=== PATIENT | male | born 1995 | race Asian ===

== ENCOUNTER 2022-10-19 14:58 | Emergency (ER) | payer MEDICAID ==
[~2022-10-19] VITALS: Ht 167.6 cm; Wt 50.0 kg
[2022-10-19] MEDS ORDERED: aspirin 81mg tab.chew PO ONE (15:15)
[2022-10-19 15:30] LABS: BASOPHILS # (AUTO) 0.1 X10'3 (0-0.2); BASOPHILS % (AUTO) 1.1 % (0-1); EOSINOPHILS # (AUTO) 0.5 X10'3 (0-0.9); EOSINOPHILS % (AUTO) 6.1 % (0-6); HEMATOCRIT 30.1 % (42.0-52.0); HEMOGLOBIN 9.9 g/dl (14.0-17.9); LYMPHOCYTES % (AUTO) 13.1 % (21-51); MEAN CORPUSCULAR HEMOGLOBIN 29.6 PG (27.0-31.0); MEAN CORPUSCULAR HGB CONC 32.9 g/dL (33.0-36.5); MEAN CORPUSCULAR VOLUME 89.9 FL (78-98); MEAN PLATELET VOLUME 6.2 FL (7.4-10.4); MONOCYTES # (AUTO) 0.6 X10'3 (0-0.9); MONOCYTES % (AUTO) 7.9 % (2-12); NEUTROPHILS # (AUTO) 5.5 X10'3 (1.8-7.7); NEUTROPHILS % (AUTO) 71.8 % (42-75); PLATELET COUNT 251 X10'3 (140-440); RED BLOOD COUNT 3.35 X10'6 (4.70-6.10); RED CELL DISTRIBUTION WIDTH 15.2 % (11.5-14.5); WHITE BLOOD COUNT 7.7 X10'3 (4.5-11.0)
--- NOTE | 2022-10-19 15:32 | NUR ---
Order to administer 324 mg ASA. RN clarified with EDUAR Estrada that pt already received this with EMS. Per provider, RN to hold. RN held.
[2022-10-19 16:04] LABS: ALANINE AMINOTRANSFERASE 12 U/L (12-78); ALBUMIN 3.2 G/DL (3.4-5.0); ALBUMIN/GLOBULIN RATIO 0.8 (1.1-1.5); ALKALINE PHOSPHATASE 52 IU/L (46-116); ANION GAP 15 (8-16); ASPARTATE AMINO TRANSFERASE 12 U/L (10-37); BILIRUBIN,TOTAL 0.4 MG/DL (0.1-1.0); BLOOD UREA NITROGEN 99 MG/DL (7-18); BUN/CREATININE RATIO 6.8 (10.0-20.0); CALCIUM 9.2 MG/DL (8.5-10.1); CHLORIDE 102 MMOL/L (99-107); CREATININE 14.54 MG/DL (0.60-1.10); GLUCOSE 98 MG/DL (70-104); MAGNESIUM 2.5 MG/DL (1.5-2.4); POTASSIUM 5.5 MMOL/L (3.5-5.1); SODIUM 142 MMOL/L (135-145); TOTAL CARBON DIOXIDE 24.8 MMOL/L (24-32); TOTAL PROTEIN 7.2 G/DL (6.4-8.2); eGFR 4 ML/MIN
[2022-10-19] MEDS ORDERED: cloNIDine 0.1 mg tablet PO ONE (16:25)
--- NOTE | 2022-10-19 18:00 | NUR ---
Upon arrival to ED, pt reports resolution of CP. At 1600, BP 198/123. Provider at bedside. PA clarifying home BP medications with pt. Catapres administered for elevated BP. SBP temporarily decreases to 170s. However, upon reassessment, BP is elevated at 195/123 and pt reporting return of CP. RN updated ARIAN Estrada. PA aware, CT ordered.
[2022-10-19] MEDS ORDERED: iohexol 350MG/ML 100ml bottle IV ONE (18:56)
[2022-10-19] MEDS: niCARDipine-NS 40mg/200ml IVPB 200 ML IV SCH (19:24)
[2022-10-19] MEDS ORDERED: fentaNYL/PF 50MCG/1 ML 2ML syringe IV ONE ×2 (19:25→22:35)
[2022-10-20] MEDS: niCARDipine-NS 40mg/200ml IVPB 200 ML IV SCH (00:23)
[2022-10-20 00:30] VITALS: BP 10/62
== END 2022-10-20 00:49 | disposition home or self-care (01) ==
LOC: ER 14:58
DX: I12.0 Hypertensive chronic kidney disease with stage 5 chronic kidney disease or end stage renal disease (principal); N18.6 End stage renal disease; I71.00 Dissection of unspecified site of aorta
CPT/HCPCS: 36415; 71045; 71250; 71275; 74174; 80053; 83735; 83880; 85025; 93005; 96365; 96366; 96375; 96376; 99291; 99292; J3010; J3490; Q9967; A4615

== ENCOUNTER 2023-07-20 11:36 | Inpatient (IN) | payer MEDICAID ==
[~2023-07-20] VITALS: Ht 167.6 cm; Wt 47.3 kg
[2023-07-20] VITALS (11 sets, daily range): BP systolic 116–152; BP diastolic 71–99; PULSE 91–103; RESP 18–25; TEMP 98–98.7; O2SAT 94–99
[2023-07-20 12:37] LABS: ABG BASE EXCESS -9.5 mmol/L (-2.0-2.0); ABG HCO3 15.1 mmol/L (22.0-26.0); ABG OXYGEN SATURATION 95.9 % (94-97); ABG PCO2 (T) 28.1 mmHg (35.0-48.0); ABG PH (T) 7.348 (7.340-7.440); ABG PO2 (T) 86.3 mmHg (75.0-100.0); ALLEN'S TEST POSITIVE; FCOHb 0.5 % (0.0-3.9); FHHb 4.1 % (0.0-5.0); FLOW 5 L/min; FMetHb 0.6 % (0.0-1.5); FO2Hb 94.8 % (94-97); MODE NASAL CANNULA; PATIENT TEMPERATURE 36.9; TOTAL HEMOGLOBIN 8.6 G/dl (14.0-17.9)
[2023-07-20 13:00] LABS: ALBUMIN 2.4 G/DL (3.4-5.0); ANION GAP 14 (8-16); BLOOD UREA NITROGEN 109 MG/DL (7-18); BUN/CREATININE RATIO 9.9 (10.0-20.0); CALCIUM 9.6 MG/DL (8.5-10.1); CHLORIDE 95 MMOL/L (99-107); CREATININE 10.96 MG/DL (0.60-1.10); GLUCOSE 83 MG/DL (70-104); SODIUM 129 MMOL/L (135-145); TOTAL CARBON DIOXIDE 20.5 MMOL/L (24-32); eCRCL 7 ML/MIN; eGFR 6 ML/MIN
[2023-07-20 13:10] LABS: POTASSIUM 6.8 MMOL/L (3.5-5.1)
[2023-07-20] MEDS ORDERED: EPOETIN ALFA-EPBX 20,000 UNIT/ML 1 ML MDV IV ONE (13:10)
[2023-07-20] MEDS ORDERED: heparin 1,000unit/ml 10ml vial 10 ML IV ONE (13:10)
[2023-07-20] MEDS ORDERED: heparin 1,000 units/ml 10ml inj IV ONE (13:10)
[2023-07-20] MEDS ORDERED: sodium bicarbonate (8.4%) 1 mEq/ml syringe IV ONE ×2 (13:15→13:25)
[2023-07-20] MEDS ORDERED: heparin 1,000 units/ml 10ml inj HE ONE ×2 (13:15)
[2023-07-20] MEDS ORDERED: CALCIUM GLUC 1gm/50ml NACL,iso 50 ML IV ONE (13:25)
[2023-07-20] MEDS ORDERED: potassium Cl 20 mEq SR tablet PO PRN ×2 (13:40)
[2023-07-20] MEDS ORDERED: mag hydrox/Alum hydrox/simeth 30ml oral suspension PO PRN (13:40)
[2023-07-20] MEDS ORDERED: ondansetron/PF 4mg/2ml inj IV PRN (13:40)
[2023-07-20] MEDS ORDERED: acetaminophen 325mg tablet PO PRN (13:40)
[2023-07-20] MEDS ORDERED: magnesium hydroxide 30ml (MOM) UD suspension PO PRN (13:40)
[2023-07-20] MEDS ORDERED: potassium Cl 40MEQ/1/2NS 520ml 520 ML IV PRN (13:40)
[2023-07-20] MEDS ORDERED: magnesium Cl slow-release 64mg tablet PO PRN (13:40)
[2023-07-20] MEDS ORDERED: morphine 2 MG/ML inj. syringe IV PRN (13:40)
[2023-07-20] MEDS ORDERED: magnesium 2GM in 50ml NS 50 ML IV PRN (13:40)
[2023-07-20] MEDS ORDERED: magnesium 4gm in 100ml NS 100 ML IV PRN (13:40)
[2023-07-20] MEDS ORDERED: sodium bicarbonate (8.4%) 1 mEq/ml syringe ONE (13:55)
[2023-07-20 14:40] LABS: BASOPHILS # (AUTO) 0.1 X10'3 (0-0.2); BASOPHILS % (AUTO) 1.3 % (0-1); EOSINOPHILS # (AUTO) 0.2 X10'3 (0-0.9); EOSINOPHILS % (AUTO) 1.8 % (0-6); HEMATOCRIT 25.7 % (42.0-52.0); HEMOGLOBIN 8.1 g/dl (14.0-17.9); LYMPHOCYTES # (AUTO) 0.5 X10'3 (1.1-4.8); LYMPHOCYTES % (AUTO) 5.2 % (21-51); MEAN CORPUSCULAR HEMOGLOBIN 27.2 PG (27.0-31.0); MEAN CORPUSCULAR HGB CONC 31.4 g/dL (33.0-36.5); MEAN CORPUSCULAR VOLUME 86.7 FL (78-98); MEAN PLATELET VOLUME 6.7 FL (7.4-10.4); MONOCYTES # (AUTO) 0.5 X10'3 (0-0.9); MONOCYTES % (AUTO) 4.6 % (2-12); NEUTROPHILS # (AUTO) 8.9 X10'3 (1.8-7.7); NEUTROPHILS % (AUTO) 87.1 % (42-75); PLATELET COUNT 359 X10'3 (140-440); RED BLOOD COUNT 2.96 X10'6 (4.70-6.10); RED CELL DISTRIBUTION WIDTH 19.9 % (11.5-14.5); WHITE BLOOD COUNT 10.2 X10'3 (4.5-11.0)
[2023-07-20 15:08] LABS: ANISOCYTOSIS 2+; PLATELET ESTIMATE NORMAL
[2023-07-20 15:09] LABS: BURR CELLS FEW; MICROCYTOSIS 1+; SCHISTOCYTES FEW; TEAR DROP CELLS FEW
[2023-07-20] MEDS: heparin, porcine 5000 units/ml vial SQ SCH (16:00)
[2023-07-20] MEDS: docusate sod 100mg capsule PO SCH (20:00)
[2023-07-20] MEDS: K and/or MAG REPLACEMENT MC SCH (20:00)
[2023-07-21] VITALS (8 sets, daily range): BP systolic 96–155; BP diastolic 52–93; PULSE 88–104; RESP 13–22; TEMP 97.7–98.9; O2SAT 93–98
[2023-07-21 07:10] LABS: BASOPHILS # (AUTO) 0.1 X10'3 (0-0.2); BASOPHILS % (AUTO) 0.8 % (0-1); EOSINOPHILS # (AUTO) 0.2 X10'3 (0-0.9); EOSINOPHILS % (AUTO) 2.5 % (0-6); HEMATOCRIT 23.1 % (42.0-52.0); HEMOGLOBIN 7.5 g/dl (14.0-17.9); LYMPHOCYTES # (AUTO) 0.6 X10'3 (1.1-4.8); LYMPHOCYTES % (AUTO) 8.4 % (21-51); MEAN CORPUSCULAR HEMOGLOBIN 27.7 PG (27.0-31.0); MEAN CORPUSCULAR HGB CONC 32.6 g/dL (33.0-36.5); MEAN CORPUSCULAR VOLUME 84.8 FL (78-98); MEAN PLATELET VOLUME 6.9 FL (7.4-10.4); MONOCYTES # (AUTO) 0.9 X10'3 (0-0.9); MONOCYTES % (AUTO) 11.6 % (2-12); NEUTROPHILS # (AUTO) 5.7 X10'3 (1.8-7.7); NEUTROPHILS % (AUTO) 76.7 % (42-75); PLATELET COUNT 316 X10'3 (140-440); RED BLOOD COUNT 2.72 X10'6 (4.70-6.10); WHITE BLOOD COUNT 7.4 X10'3 (4.5-11.0)
[2023-07-21 07:21] LABS: ALANINE AMINOTRANSFERASE 9 U/L (12-78); ALBUMIN 2.2 G/DL (3.4-5.0); ALBUMIN/GLOBULIN RATIO 0.5 (1.1-1.5); ALKALINE PHOSPHATASE 58 IU/L (46-116); ANION GAP 10 (8-16); ASPARTATE AMINO TRANSFERASE 17 U/L (10-37); BILIRUBIN,TOTAL 0.9 MG/DL (0.1-1.0); BLOOD UREA NITROGEN 60 MG/DL (7-18); BUN/CREATININE RATIO 9.6 (10.0-20.0); CALCIUM 8.7 MG/DL (8.5-10.1); CHLORIDE 95 MMOL/L (99-107); CREATININE 6.24 MG/DL (0.60-1.10); GLUCOSE 106 MG/DL (70-104); MAGNESIUM 1.8 MG/DL (1.5-2.4); PHOSPHORUS 6.8 MG/DL (2.3-4.5); POTASSIUM 4.8 MMOL/L (3.5-5.1); SODIUM 133 MMOL/L (135-145); TOTAL CARBON DIOXIDE 28.2 MMOL/L (24-32); TOTAL PROTEIN 6.8 G/DL (6.4-8.2); eCRCL 12 ML/MIN; eGFR 11 ML/MIN
[2023-07-21] MEDS: K and/or MAG REPLACEMENT MC SCH ×2 (08:00→19:00)
[2023-07-21] MEDS: docusate sod 100mg capsule PO SCH ×2 (08:04→19:01)
[2023-07-21] MEDS: heparin, porcine 5000 units/ml vial SQ SCH ×4 (08:05→23:00)
[2023-07-21] MEDS ORDERED: oxyCODONE/APAP 5-325mg tablet PO PRN (16:15)
[2023-07-22] VITALS (20 sets, daily range): BP systolic 149–192; BP diastolic 91–130; PULSE 87–122; RESP 18–30; TEMP 97.3–98.9; O2SAT 92–100
[2023-07-22] MEDS ORDERED: normal saline 1000ml 250 ML IV PRN (07:45)
[2023-07-22] MEDS ORDERED: heparin 1,000unit/ml 10ml vial 10 ML IV ONE ×2 (07:45→09:45)
[2023-07-22] MEDS ORDERED: EPOETIN ALFA-EPBX 20,000 UNIT/ML 1 ML MDV IV ONE (07:45)
[2023-07-22] MEDS ORDERED: heparin 1,000 units/ml 10ml inj HE ONE (07:50)
[2023-07-22] MEDS: docusate sod 100mg capsule PO SCH ×2 (08:00→19:49)
[2023-07-22] MEDS: heparin, porcine 5000 units/ml vial SQ SCH ×3 (08:00→23:07)
[2023-07-22] MEDS: K and/or MAG REPLACEMENT MC SCH ×2 (08:00→20:00)
[2023-07-22 08:25] LABS: BASOPHILS # (AUTO) 0.1 X10'3 (0-0.2); BASOPHILS % (AUTO) 1.1 % (0-1); EOSINOPHILS # (AUTO) 0.3 X10'3 (0-0.9); HEMATOCRIT 24.3 % (42.0-52.0); HEMOGLOBIN 7.9 g/dl (14.0-17.9); LYMPHOCYTES # (AUTO) 0.7 X10'3 (1.1-4.8); LYMPHOCYTES % (AUTO) 9.6 % (21-51); MEAN CORPUSCULAR HEMOGLOBIN 27.5 PG (27.0-31.0); MEAN CORPUSCULAR HGB CONC 32.3 g/dL (33.0-36.5); MEAN PLATELET VOLUME 6.8 FL (7.4-10.4); MONOCYTES # (AUTO) 0.8 X10'3 (0-0.9); MONOCYTES % (AUTO) 11.1 % (2-12); NEUTROPHILS # (AUTO) 5.3 X10'3 (1.8-7.7); NEUTROPHILS % (AUTO) 74.2 % (42-75); PLATELET COUNT 331 X10'3 (140-440); RED BLOOD COUNT 2.86 X10'6 (4.70-6.10); RED CELL DISTRIBUTION WIDTH 18.8 % (11.5-14.5); WHITE BLOOD COUNT 7.2 X10'3 (4.5-11.0)
[2023-07-22 08:48] LABS: ALANINE AMINOTRANSFERASE 11 U/L (12-78); ALBUMIN 2.5 G/DL (3.4-5.0); ALBUMIN/GLOBULIN RATIO 0.5 (1.1-1.5); ALKALINE PHOSPHATASE 55 IU/L (46-116); ANION GAP 14 (8-16); ASPARTATE AMINO TRANSFERASE 16 U/L (10-37); BILIRUBIN,TOTAL 0.7 MG/DL (0.1-1.0); BLOOD UREA NITROGEN 84 MG/DL (7-18); BUN/CREATININE RATIO 10.3 (10.0-20.0); CALCIUM 9.7 MG/DL (8.5-10.1); CHLORIDE 92 MMOL/L (99-107); CREATININE 8.13 MG/DL (0.60-1.10); GLUCOSE 92 MG/DL (70-104); MAGNESIUM 1.6 MG/DL (1.5-2.4); PHOSPHORUS 8.4 MG/DL (2.3-4.5); POTASSIUM 5.7 MMOL/L (3.5-5.1); SODIUM 130 MMOL/L (135-145); TOTAL CARBON DIOXIDE 24.2 MMOL/L (24-32); TOTAL PROTEIN 7.5 G/DL (6.4-8.2); eCRCL 9 ML/MIN; eGFR 8 ML/MIN
[2023-07-22 09:13] LABS: ANISOCYTOSIS 2+; ELLIPTOCYTES 1+; PLATELET ESTIMATE NORMAL; TEAR DROP CELLS FEW
[2023-07-22 09:14] LABS: BURR CELLS FEW
[2023-07-22] MEDS: heparin 1,000 units/ml 10ml inj HE ONE ×2 (09:55→13:25)
[2023-07-22] MEDS ORDERED: albuterol 2.5 MG/3 ML nebule NEB PRN (10:30)
[2023-07-22] MEDS ORDERED: albuterol 2.5 MG/3 ML nebule ONE (10:31)
[2023-07-22] MEDS ORDERED: hydrALAZINE 20mg/ml inj. IV PRN ×2 (11:40)
[2023-07-22 13:48] LABS: HBSAG SCREEN Negative (Negative)
[2023-07-23] VITALS (15 sets, daily range): BP systolic 135–175; BP diastolic 74–122; PULSE 87–104; RESP 16–26; TEMP 98–99.4; O2SAT 95–100
[2023-07-23] MEDS: cloNIDine 0.1 mg tablet PO SCH ×3 (04:52→13:00)
[2023-07-23] MEDS: heparin, porcine 5000 units/ml vial SQ SCH ×2 (08:00→16:00)
[2023-07-23 08:13] LABS: BASOPHILS # (AUTO) 0.1 X10'3 (0-0.2); BASOPHILS % (AUTO) 1.1 % (0-1); EOSINOPHILS # (AUTO) 0.3 X10'3 (0-0.9); EOSINOPHILS % (AUTO) 5.3 % (0-6); HEMATOCRIT 22.8 % (42.0-52.0); HEMOGLOBIN 7.3 g/dl (14.0-17.9); LYMPHOCYTES # (AUTO) 0.8 X10'3 (1.1-4.8); LYMPHOCYTES % (AUTO) 12.5 % (21-51); MEAN CORPUSCULAR HEMOGLOBIN 27.5 PG (27.0-31.0); MEAN CORPUSCULAR VOLUME 85.9 FL (78-98); MEAN PLATELET VOLUME 6.8 FL (7.4-10.4); MONOCYTES # (AUTO) 0.7 X10'3 (0-0.9); MONOCYTES % (AUTO) 12.1 % (2-12); NEUTROPHILS # (AUTO) 4.2 X10'3 (1.8-7.7); PLATELET COUNT 314 X10'3 (140-440); RED BLOOD COUNT 2.66 X10'6 (4.70-6.10); RED CELL DISTRIBUTION WIDTH 18.4 % (11.5-14.5); WHITE BLOOD COUNT 6.1 X10'3 (4.5-11.0)
[2023-07-23] MEDS: docusate sod 100mg capsule PO SCH (08:33)
[2023-07-23 08:51] LABS: % IRON SATURATION 14 % (11-46); IRON 29 UG/DL (53-167); TOTAL IRON BINDING CAPACITY 201 UG/DL (259-388)
[2023-07-23 08:58] LABS: ALANINE AMINOTRANSFERASE 14 U/L (12-78); ALBUMIN 2.6 G/DL (3.4-5.0); ALBUMIN/GLOBULIN RATIO 0.5 (1.1-1.5); ALKALINE PHOSPHATASE 56 IU/L (46-116); ANION GAP 11 (8-16); ASPARTATE AMINO TRANSFERASE 17 U/L (10-37); BILIRUBIN,TOTAL 0.7 MG/DL (0.1-1.0); BLOOD UREA NITROGEN 49 MG/DL (7-18); BUN/CREATININE RATIO 9.7 (10.0-20.0); CALCIUM 9.8 MG/DL (8.5-10.1); CHLORIDE 95 MMOL/L (99-107); CREATININE 5.04 MG/DL (0.60-1.10); FERRITIN 515 NG/ML (26-388); GLUCOSE 86 MG/DL (70-104); MAGNESIUM 1.8 MG/DL (1.5-2.4); POTASSIUM 5.5 MMOL/L (3.5-5.1); SODIUM 131 MMOL/L (135-145); TOTAL CARBON DIOXIDE 24.6 MMOL/L (24-32); TOTAL PROTEIN 7.5 G/DL (6.4-8.2); eCRCL 14 ML/MIN; eGFR 14 ML/MIN
[2023-07-23] MEDS ORDERED: ONDA4TAB12 PO (10:00)
[2023-07-23] MEDS ORDERED: CARV25TA3 PO (10:00)
[2023-07-23] MEDS ORDERED: AMLO2.5T2 PO (10:00)
[2023-07-23] MEDS ORDERED: PANT-47 PO (10:00)
[2023-07-23] MEDS ORDERED: FOSI40TA71 PO (10:00)
[2023-07-23] MEDS ORDERED: LANT10005 PO (10:00)
[2023-07-23] MEDS ORDERED: amLODIPine 2.5mg tablet PO SCH (13:30)
[2023-07-23] MEDS ORDERED: pantoprazole 40mg Tablet.DR PO SCH (13:30)
[2023-07-23] MEDS ORDERED: EPOETIN ALFA-EPBX 20,000 UNIT/ML 1 ML MDV IV ONE (13:55)
[2023-07-23] MEDS ORDERED: heparin 1,000unit/ml 10ml vial 10 ML IV ONE (13:55)
[2023-07-23] MEDS ORDERED: normal saline 1000ml 250 ML IV PRN (13:55)
[2023-07-23] MEDS ORDERED: heparin 1,000 units/ml 10ml inj HE ONE ×2 (14:00)
[2023-07-23] MEDS ORDERED: ondansetron 4mg rapidly disintigrating tab PO SCH (16:00)
[2023-07-23] MEDS ORDERED: LANTHANUM CARBONATE PO SCH (18:00)
[2023-07-23] MEDS ORDERED: carVEDilol 12.5mg tablet PO SCH (20:00)
[2023-07-24] MEDS ORDERED: lisinopril 20mg tablet PO SCH (08:00)
== END 2023-07-23 19:55 | disposition home or self-care (01) | DRG 425 ==
LOC: ER 11:36 → PCU 3S 13:41
PROVIDERS: ADMIT Internal Medicine; ATTEND Internal Medicine
PROC: 5A1D70Z Performance of Urinary Filtration, Intermittent, Less than 6 Hours Per Day (ICD-10-PCS; principal; 2023-07-20)
PROC: 5A1D70Z Performance of Urinary Filtration, Intermittent, Less than 6 Hours Per Day (ICD-10-PCS; 2023-07-22)
PROC: 5A1D70Z Performance of Urinary Filtration, Intermittent, Less than 6 Hours Per Day (ICD-10-PCS; 2023-07-23)
DX: E87.70 Fluid overload, unspecified (principal); J96.00 Acute respiratory failure, unspecified whether with hypoxia or hypercapnia; N18.6 End stage renal disease; I12.0 Hypertensive chronic kidney disease with stage 5 chronic kidney disease or end stage renal disease; E87.5 Hyperkalemia; I71.9 Aortic aneurysm of unspecified site, without rupture; Z91.158 Patient's noncompliance with renal dialysis for other reason; Z99.2 Dependence on renal dialysis; Z91.199 Patient's noncompliance with other medical treatment and regimen due to unspecified reason
CPT/HCPCS: 36415; 36600; 71045; 80048; 80053; 82607; 82728; 82803; 83540; 83550; 83605; 83735; 84100; 85008; 85018; 85025; 87040; 87081; 87340; 94640; 94760; 99285; A4615; E1594; G0257; G0378; J0610; J1644; J3490; J7030; Q4081

== ENCOUNTER 2023-10-16 11:08 | Outpatient (CLI) | payer MEDICAID ==
[~2023-10-16 11:08] MED LIST: AMLO2.5T2 PO; CARV25TA3 PO; FOSI40TA71 PO; LANT10005 PO; ONDA4TAB12 PO; PANT-47 PO
[2023-10-16] MEDS ORDERED: iohexol 350MG/ML 100ml bottle IV ONE ×2 (11:42→12:55)
== END 2023-10-16 23:59 | disposition home or self-care (01) ==
LOC: RAD 11:08
PROVIDERS: ATTEND Nurse Practitioner
DX: I71.23 Aneurysm of the descending thoracic aorta, without rupture (principal); I71.00 Dissection of unspecified site of aorta; J18.9 Pneumonia, unspecified organism; J90 Pleural effusion, not elsewhere classified; I25.10 Atherosclerotic heart disease of native coronary artery without angina pectoris; N26.1 Atrophy of kidney (terminal)
CPT/HCPCS: 71275; 74174; J3490; Q9967

== ENCOUNTER 2023-11-03 17:41 | Inpatient (IN) | payer MEDICAID ==
[~2023-11-03] VITALS: Ht 167.6 cm; Wt 55.0 kg
[2023-11-03 18:24] LABS: BASOPHILS % (AUTO) 0.8 % (0-1); EOSINOPHILS # (AUTO) 0.3 X10'3 (0-0.9); HEMATOCRIT 25.8 % (42.0-52.0); HEMOGLOBIN 8.5 g/dl (14.0-17.9); LYMPHOCYTES # (AUTO) 0.5 X10'3 (1.1-4.8); LYMPHOCYTES % (AUTO) 9.9 % (21-51); MEAN CORPUSCULAR HEMOGLOBIN 28.8 PG (27.0-31.0); MEAN CORPUSCULAR HGB CONC 32.9 g/dL (33.0-36.5); MEAN CORPUSCULAR VOLUME 87.3 FL (78-98); MEAN PLATELET VOLUME 6.9 FL (7.4-10.4); MONOCYTES # (AUTO) 0.6 X10'3 (0-0.9); MONOCYTES % (AUTO) 10.4 % (2-12); NEUTROPHILS % (AUTO) 72.9 % (42-75); PLATELET COUNT 263 X10'3 (140-440); RED BLOOD COUNT 2.96 X10'6 (4.70-6.10); RED CELL DISTRIBUTION WIDTH 18.4 % (11.5-14.5); WHITE BLOOD COUNT 5.4 X10'3 (4.5-11.0)
[2023-11-03 18:40] LABS: ALANINE AMINOTRANSFERASE 9 U/L (12-78); ALBUMIN 3.4 G/DL (3.4-5.0); ALBUMIN/GLOBULIN RATIO 0.6 (1.1-1.5); ALKALINE PHOSPHATASE 70 IU/L (46-116); ANION GAP 12 (8-16); ASPARTATE AMINO TRANSFERASE 16 U/L (10-37); BILIRUBIN,TOTAL 0.8 MG/DL (0.1-1.0); BLOOD UREA NITROGEN 30 MG/DL (7-18); BUN/CREATININE RATIO 6.7 (10.0-20.0); CALCIUM 8.8 MG/DL (8.5-10.1); CHLORIDE 96 MMOL/L (99-107); CREATININE 4.45 MG/DL (0.60-1.10); GLUCOSE 104 MG/DL (70-104); POTASSIUM 3.4 MMOL/L (3.5-5.1); SODIUM 139 MMOL/L (135-145); TOTAL CARBON DIOXIDE 31.1 MMOL/L (24-32); TOTAL PROTEIN 8.9 G/DL (6.4-8.2); eCRCL 19 ML/MIN; eGFR 16 ML/MIN
[2023-11-03 19:54] LABS: PRO BRAIN NATRIURETIC PEPTIDE > 30000 PG/ML (0-125)
[2023-11-03] MEDS: piperacillin/tazo 3.375gm/50ml 50 ML IV ONE (21:05)
[2023-11-04] VITALS (7 sets, daily range): BP systolic 103–167; BP diastolic 67–101; PULSE 61–93; RESP 16–18; TEMP 97.6–98.2; O2SAT 97–100
[2023-11-04] MEDS ORDERED: normal saline 1000ml 1,000 ML IV SCH (04:25)
[2023-11-04] MEDS: acetaminophen 325mg tablet PO PRN (07:04)
[2023-11-04] MEDS: lisinopril 20mg tablet PO SCH (07:16)
[2023-11-04] MEDS: amLODIPine 5mg tablet PO SCH (07:16)
[2023-11-04] MEDS: carVEDilol 12.5mg tablet PO SCH (07:16)
[2023-11-04] MEDS: heparin, porcine 5000 units/ml vial SQ SCH (07:17)
[2023-11-04] MEDS: azithromycin/NS 500mg/250ml 250 ML IV SCH (07:22)
[2023-11-04] MEDS: CefTRIAXone/D5W-Rocephin 1gm 50 ML IV SCH (07:22)
[2023-11-04 08:59] LABS: BASOPHILS % (AUTO) 0.7 % (0-1); EOSINOPHILS # (AUTO) 0.3 X10'3 (0-0.9); HEMATOCRIT 24.2 % (42.0-52.0); HEMOGLOBIN 7.8 g/dl (14.0-17.9); LYMPHOCYTES # (AUTO) 0.5 X10'3 (1.1-4.8); LYMPHOCYTES % (AUTO) 9.3 % (21-51); MEAN CORPUSCULAR HEMOGLOBIN 28.5 PG (27.0-31.0); MEAN CORPUSCULAR HGB CONC 32.2 g/dL (33.0-36.5); MEAN CORPUSCULAR VOLUME 88.4 FL (78-98); MONOCYTES # (AUTO) 0.4 X10'3 (0-0.9); MONOCYTES % (AUTO) 7.5 % (2-12); NEUTROPHILS # (AUTO) 4.1 X10'3 (1.8-7.7); NEUTROPHILS % (AUTO) 76.5 % (42-75); PLATELET COUNT 239 X10'3 (140-440); RED BLOOD COUNT 2.74 X10'6 (4.70-6.10); RED CELL DISTRIBUTION WIDTH 18.9 % (11.5-14.5); WHITE BLOOD COUNT 5.3 X10'3 (4.5-11.0)
[2023-11-04 09:14] LABS: ALBUMIN 2.8 G/DL (3.4-5.0); ANION GAP 7 (8-16); BLOOD UREA NITROGEN 48 MG/DL (7-18); BUN/CREATININE RATIO 7.1 (10.0-20.0); CALCIUM 8.6 MG/DL (8.5-10.1); CHLORIDE 97 MMOL/L (99-107); CREATININE 6.79 MG/DL (0.60-1.10); GLUCOSE 123 MG/DL (70-104); MAGNESIUM 1.8 MG/DL (1.5-2.4); PHOSPHORUS 6.4 MG/DL (2.3-4.5); POTASSIUM 4.9 MMOL/L (3.5-5.1); SODIUM 135 MMOL/L (135-145); eCRCL 12 ML/MIN; eGFR 10 ML/MIN
[2023-11-04 09:46] LABS: PLATELET ESTIMATE NORMAL
[2023-11-04 09:47] LABS: ANISOCYTOSIS 2+; ELLIPTOCYTES FEW; SCHISTOCYTES FEW
[2023-11-04 09:50] LABS: HEMOGLOBIN A1C 4.2 % (4.5-6.2)
[2023-11-04] MEDS ORDERED: iohexol 350MG/ML 100ml bottle IV ONE (15:55)
[2023-11-04] MEDS ORDERED: heparin 10,000 units/1 ML INJ IV PRN ×2 (15:55→16:02)
[2023-11-04] MEDS: heparin 25,000 UNIT/250ml bag 250 ML IV PRN (16:51)
[2023-11-04] MEDS: heparin 10,000 units/1 ML INJ IV ONE (16:53)
[2023-11-04] MEDS: MESSAGE TO NURSING IV ONE (16:56)
[2023-11-04 17:09] LABS: APTT 29 SECONDS (22-32); INR 1.1 INR; PROTHROMBIN TIME 11.3 SECONDS (9.0-12.0)
[2023-11-04] MEDS: hydrALAZINE 25 MG tablet PO SCH (20:07)
[2023-11-05] VITALS (17 sets, daily range): BP systolic 117–185; BP diastolic 70–116; PULSE 81–100; RESP 14–24; TEMP 97–99.5; O2SAT 94–100
[2023-11-05] MEDS: MESSAGE TO NURSING IV ONE ×3 (00:41→13:10)
[2023-11-05 08:18] LABS: BASOPHILS # (AUTO) 0.1 X10'3 (0-0.2); BASOPHILS % (AUTO) 0.8 % (0-1); EOSINOPHILS # (AUTO) 0.3 X10'3 (0-0.9); EOSINOPHILS % (AUTO) 4.9 % (0-6); LYMPHOCYTES # (AUTO) 0.5 X10'3 (1.1-4.8); LYMPHOCYTES % (AUTO) 7.4 % (21-51); MEAN CORPUSCULAR HEMOGLOBIN 28.3 PG (27.0-31.0); MEAN CORPUSCULAR HGB CONC 32.1 g/dL (33.0-36.5); MEAN CORPUSCULAR VOLUME 88.3 FL (78-98); MEAN PLATELET VOLUME 6.7 FL (7.4-10.4); MONOCYTES # (AUTO) 0.4 X10'3 (0-0.9); MONOCYTES % (AUTO) 6.6 % (2-12); NEUTROPHILS # (AUTO) 5.2 X10'3 (1.8-7.7); NEUTROPHILS % (AUTO) 80.3 % (42-75); PLATELET COUNT 199 X10'3 (140-440); RED BLOOD COUNT 2.47 X10'6 (4.70-6.10); RED CELL DISTRIBUTION WIDTH 17.7 % (11.5-14.5); WHITE BLOOD COUNT 6.5 X10'3 (4.5-11.0)
[2023-11-05 08:28] LABS: HEMATOCRIT 21.8 % (42.0-52.0)
[2023-11-05 08:37] LABS: ALBUMIN 2.6 G/DL (3.4-5.0); ANION GAP 11 (8-16); BLOOD UREA NITROGEN 49 MG/DL (7-18); BUN/CREATININE RATIO 6.9 (10.0-20.0); CALCIUM 8.6 MG/DL (8.5-10.1); CHLORIDE 95 MMOL/L (99-107); CREATININE 7.09 MG/DL (0.60-1.10); GLUCOSE 83 MG/DL (70-104); MAGNESIUM 1.8 MG/DL (1.5-2.4); PHOSPHORUS 5.6 MG/DL (2.3-4.5); POTASSIUM 4.5 MMOL/L (3.5-5.1); SODIUM 134 MMOL/L (135-145); TOTAL CARBON DIOXIDE 28.5 MMOL/L (24-32); eCRCL 12 ML/MIN; eGFR 9 ML/MIN
[2023-11-05] MEDS: heparin 1,000unit/ml 10ml vial 10 ML IV ONE (10:20)
[2023-11-05] MEDS: heparin 1,000 units/ml 10ml inj IV ONE (10:20)
[2023-11-05] MEDS: EPOETIN ALFA-EPBX 20,000 UNIT/ML 1 ML MDV IV ONE (10:40)
[2023-11-05] MEDS: heparin 1,000 units/ml 10ml inj HE ONE ×2 (10:42→10:43)
[2023-11-05 11:26] LABS: ABG BASE EXCESS -1.4 mmol/L (-2.0-2.0); ABG HCO3 22.7 mmol/L (22.0-26.0); ABG OXYGEN SATURATION 92.1 % (94-97); ABG PCO2 (T) 34.9 mmHg (35.0-48.0); ABG PH (T) 7.429 (7.340-7.440); ABG PO2 (T) 64.5 mmHg (75.0-100.0); ALLEN'S TEST POSITIVE; FCOHb 1.4 % (0.0-3.9); FHHb 7.8 % (0.0-5.0); FLOW 2 L/min; FMetHb 0.1 % (0.0-1.5); FO2Hb 90.7 % (94-97); MODE NC; PATIENT TEMPERATURE 36.6; TOTAL HEMOGLOBIN 10.8 G/dl (14.0-17.9)
[2023-11-05 12:08] LABS: HEMOGLOBIN 9.1 g/dl (14.0-17.9); MEAN CORPUSCULAR HEMOGLOBIN 28.6 PG (27.0-31.0); MEAN CORPUSCULAR HGB CONC 32.5 g/dL (33.0-36.5); MEAN CORPUSCULAR VOLUME 88.2 FL (78-98); MEAN PLATELET VOLUME 6.8 FL (7.4-10.4); PLATELET COUNT 269 X10'3 (140-440); RED BLOOD COUNT 3.17 X10'6 (4.70-6.10); RED CELL DISTRIBUTION WIDTH 18.2 % (11.5-14.5); WHITE BLOOD COUNT 7.8 X10'3 (4.5-11.0)
[2023-11-05] MEDS ORDERED: hydrALAZINE 20mg/ml inj. IV PRN (12:35)
[2023-11-05] MEDS: furosemide 40mg/4ml inj IV SCH (13:10)
[2023-11-05] MEDS: labetalol 100mg tablet PO SCH (20:00)
[2023-11-05] MEDS ORDERED: hydrALAZINE 25 MG tablet PO SCH (21:00)
[2023-11-06] VITALS (11 sets, daily range): BP systolic 113–149; BP diastolic 72–99; PULSE 79–93; RESP 16–21; TEMP 97–99.2; O2SAT 98–100
[2023-11-06 07:20] LABS: BASOPHILS # (AUTO) 0.1 X10'3 (0-0.2); BASOPHILS % (AUTO) 0.8 % (0-1); EOSINOPHILS # (AUTO) 0.3 X10'3 (0-0.9); EOSINOPHILS % (AUTO) 4.1 % (0-6); HEMOGLOBIN 8.7 g/dl (14.0-17.9); LYMPHOCYTES # (AUTO) 0.7 X10'3 (1.1-4.8); LYMPHOCYTES % (AUTO) 8.7 % (21-51); MEAN CORPUSCULAR HEMOGLOBIN 28.6 PG (27.0-31.0); MEAN CORPUSCULAR HGB CONC 32.2 g/dL (33.0-36.5); MEAN PLATELET VOLUME 6.9 FL (7.4-10.4); MONOCYTES # (AUTO) 0.6 X10'3 (0-0.9); MONOCYTES % (AUTO) 8.3 % (2-12); NEUTROPHILS # (AUTO) 5.9 X10'3 (1.8-7.7); NEUTROPHILS % (AUTO) 78.1 % (42-75); PLATELET COUNT 245 X10'3 (140-440); RED BLOOD COUNT 3.04 X10'6 (4.70-6.10); RED CELL DISTRIBUTION WIDTH 18.2 % (11.5-14.5); WHITE BLOOD COUNT 7.5 X10'3 (4.5-11.0)
[2023-11-06 07:40] LABS: ALBUMIN 3.1 G/DL (3.4-5.0); ANION GAP 12 (8-16); BLOOD UREA NITROGEN 52 MG/DL (7-18); BUN/CREATININE RATIO 6.5 (10.0-20.0); CALCIUM 9.4 MG/DL (8.5-10.1); CHLORIDE 96 MMOL/L (99-107); CREATININE 7.94 MG/DL (0.60-1.10); GLUCOSE 90 MG/DL (70-104); MAGNESIUM 2.1 MG/DL (1.5-2.4); PHOSPHORUS 7.6 MG/DL (2.3-4.5); POTASSIUM 5.3 MMOL/L (3.5-5.1); SODIUM 133 MMOL/L (135-145); TOTAL CARBON DIOXIDE 24.7 MMOL/L (24-32); eCRCL 11 ML/MIN; eGFR 8 ML/MIN
[2023-11-06] MEDS: labetalol 100mg tablet PO SCH (08:15)
[2023-11-06 08:55] LABS: HBSAG SCREEN Negative (Negative)
[2023-11-06] MEDS: SODIUM ZIRCONIUM CYCLOSILICATE 10 GM POWD.PACK PO STA (17:23)
[2023-11-07] VITALS (21 sets, daily range): BP systolic 89–140; BP diastolic 55–89; PULSE 76–99; RESP 16–21; TEMP 97.6–99.2; O2SAT 93–100
[2023-11-07 07:08] LABS: BASOPHILS # (AUTO) 0.1 X10'3 (0-0.2); BASOPHILS % (AUTO) 0.9 % (0-1); EOSINOPHILS # (AUTO) 0.3 X10'3 (0-0.9); EOSINOPHILS % (AUTO) 5.7 % (0-6); HEMATOCRIT 23.3 % (42.0-52.0); HEMOGLOBIN 7.7 g/dl (14.0-17.9); LYMPHOCYTES # (AUTO) 0.6 X10'3 (1.1-4.8); LYMPHOCYTES % (AUTO) 10.8 % (21-51); MEAN CORPUSCULAR HEMOGLOBIN 29.1 PG (27.0-31.0); MEAN CORPUSCULAR VOLUME 88.3 FL (78-98); MONOCYTES # (AUTO) 0.6 X10'3 (0-0.9); MONOCYTES % (AUTO) 9.6 % (2-12); NEUTROPHILS # (AUTO) 4.3 X10'3 (1.8-7.7); PLATELET COUNT 242 X10'3 (140-440); RED BLOOD COUNT 2.64 X10'6 (4.70-6.10); RED CELL DISTRIBUTION WIDTH 17.8 % (11.5-14.5); WHITE BLOOD COUNT 5.9 X10'3 (4.5-11.0)
[2023-11-07 07:28] LABS: ALBUMIN 2.9 G/DL (3.4-5.0); ANION GAP 15 (8-16); BLOOD UREA NITROGEN 78 MG/DL (7-18); BUN/CREATININE RATIO 7.2 (10.0-20.0); CALCIUM 9.4 MG/DL (8.5-10.1); CHLORIDE 95 MMOL/L (99-107); CREATININE 10.78 MG/DL (0.60-1.10); GLUCOSE 82 MG/DL (70-104); MAGNESIUM 2.3 MG/DL (1.5-2.4); POTASSIUM 5.1 MMOL/L (3.5-5.1); SODIUM 133 MMOL/L (135-145); TOTAL CARBON DIOXIDE 23.1 MMOL/L (24-32); eCRCL 8 ML/MIN; eGFR 6 ML/MIN
[2023-11-07 07:52] LABS: PHOSPHORUS 11.3 MG/DL (2.3-4.5)
[2023-11-07] MEDS: albumin (human) 25% 100ml IV 100 ML IV PRN (08:05)
[2023-11-07] MEDS: ipratropium/albuterol 3ml nebule NEB PRN (08:35)
[2023-11-07] MEDS: heparin 1,000 units/ml 10ml inj HE ONE ×2 (09:08→09:09)
[2023-11-07] MEDS: EPOETIN ALFA-EPBX 20,000 UNIT/ML 1 ML MDV IV ONE (10:41)
[2023-11-07] MEDS: sevelamer carbonate 0.8gm powder pkt PO SCH (13:54)
[2023-11-08] VITALS (12 sets, daily range): BP systolic 102–134; BP diastolic 65–84; PULSE 68–91; RESP 13–20; TEMP 97.3–98.3; O2SAT 100
[2023-11-08 06:02] LABS: BASOPHILS # (AUTO) 0.1 X10'3 (0-0.2); EOSINOPHILS # (AUTO) 0.4 X10'3 (0-0.9); EOSINOPHILS % (AUTO) 6.7 % (0-6); HEMATOCRIT 25.3 % (42.0-52.0); HEMOGLOBIN 8.4 g/dl (14.0-17.9); LYMPHOCYTES # (AUTO) 0.7 X10'3 (1.1-4.8); LYMPHOCYTES % (AUTO) 11.5 % (21-51); MEAN CORPUSCULAR HEMOGLOBIN 28.9 PG (27.0-31.0); MEAN CORPUSCULAR VOLUME 87.6 FL (78-98); MEAN PLATELET VOLUME 6.9 FL (7.4-10.4); MONOCYTES # (AUTO) 0.7 X10'3 (0-0.9); MONOCYTES % (AUTO) 12.6 % (2-12); NEUTROPHILS # (AUTO) 3.9 X10'3 (1.8-7.7); NEUTROPHILS % (AUTO) 68.2 % (42-75); PLATELET COUNT 249 X10'3 (140-440); RED BLOOD COUNT 2.89 X10'6 (4.70-6.10); RED CELL DISTRIBUTION WIDTH 17.8 % (11.5-14.5); WHITE BLOOD COUNT 5.7 X10'3 (4.5-11.0)
[2023-11-08 06:08] LABS: ALBUMIN 3.1 G/DL (3.4-5.0); ANION GAP 16 (8-16); BLOOD UREA NITROGEN 54 MG/DL (7-18); BUN/CREATININE RATIO 6.8 (10.0-20.0); CALCIUM 9.8 MG/DL (8.5-10.1); CHLORIDE 95 MMOL/L (99-107); CREATININE 7.97 MG/DL (0.60-1.10); GLUCOSE 89 MG/DL (70-104); MAGNESIUM 2.3 MG/DL (1.5-2.4); PHOSPHORUS 8.5 MG/DL (2.3-4.5); SODIUM 133 MMOL/L (135-145); TOTAL CARBON DIOXIDE 21.6 MMOL/L (24-32); eCRCL 11 ML/MIN; eGFR 8 ML/MIN
[2023-11-08] MEDS: acetaminophen 325mg tablet PO PRN (15:08)
== END 2023-11-08 21:50 | disposition short-term general hospital (02) | DRG 133 ==
LOC: ER 17:42 → ED HOLD 22:06 → EDBEDREQ 11-04 01:13 → ORTHO 4S 11-04 02:40 → PCU 3S 11-05 16:00
PROVIDERS: ADMIT Internal Medicine Pulmonary Disease; ATTEND Family Medicine
PROC: B32T1ZZ Computerized Tomography (CT Scan) of Left Pulmonary Artery using Low Osmolar Contrast (ICD-10-PCS; principal; 2023-11-04)
PROC: B3201ZZ Computerized Tomography (CT Scan) of Thoracic Aorta using Low Osmolar Contrast (ICD-10-PCS; 2023-11-04)
PROC: B32S1ZZ Computerized Tomography (CT Scan) of Right Pulmonary Artery using Low Osmolar Contrast (ICD-10-PCS; 2023-11-04)
DX: J96.20 Acute and chronic respiratory failure, unspecified whether with hypoxia or hypercapnia (principal); I71.012 Dissection of descending thoracic aorta; I50.23 Acute on chronic systolic (congestive) heart failure; J18.9 Pneumonia, unspecified organism; N18.6 End stage renal disease; T82.868A Thrombosis due to vascular prosthetic devices, implants and grafts, initial encounter; R04.2 Hemoptysis; Z20.822 Contact with and (suspected) exposure to COVID-19; I13.2 Hypertensive heart and chronic kidney disease with heart failure and with stage 5 chronic kidney disease, or end stage renal disease; Y83.8 Other surgical procedures as the cause of abnormal reaction of the patient, or of later complication, without mention of misadventure at the time of the procedure; D64.9 Anemia, unspecified; Z79.899 Other long term (current) drug therapy; Z99.2 Dependence on renal dialysis; Y92.89 Other specified places as the place of occurrence of the external cause
CPT/HCPCS: 36415; 36600; 71045; 71250; 71275; 74174; 80048; 80053; 82803; 83036; 83605; 83735; 83880; 84100; 84484; 85008; 85018; 85025; 85027; 85610; 85730; 87040; 87081; 87340; 87502; 87503; 87811; 93005; 93306; 94640; 94760; 99285; A4615; A6449; E1594; G0257; G0378; J0456; J0696; J1644; J1940; J2543; J3490; J7030; J7040; P9047; Q4081; Q9967

== ENCOUNTER 2024-02-23 13:08 | Inpatient (IN) | payer MEDICAID ==
[~2024-02-23] VITALS: Ht 167.6 cm; Wt 52.2 kg
[2024-02-23] VITALS (7 sets, daily range): BP systolic 120–178; BP diastolic 80–107; PULSE 92–111; RESP 18–22; TEMP 97.8; O2SAT 98–100
[~2024-02-23 13:08] MED LIST changes: -LANT10005 PO; +ONDA-243 PO; -ONDA4TAB12 PO
[2024-02-23] MEDS ORDERED: albumin (human) 25% 100ml IV 100 ML IV PRN (15:00)
[2024-02-23] MEDS: EPOETIN ALFA-EPBX 20,000 UNIT/ML 1 ML MDV IV ONE (15:00)
[2024-02-23 15:22] LABS: BASOPHILS # (AUTO) 0.1 X10'3 (0-0.2); BASOPHILS % (AUTO) 1.5 % (0-1); EOSINOPHILS # (AUTO) 0.4 X10'3 (0-0.9); EOSINOPHILS % (AUTO) 5.7 % (0-6); HEMATOCRIT 34.2 % (42.0-52.0); HEMOGLOBIN 11.1 g/dl (14.0-17.9); LYMPHOCYTES # (AUTO) 0.8 X10'3 (1.1-4.8); LYMPHOCYTES % (AUTO) 10.4 % (21-51); MEAN CORPUSCULAR HEMOGLOBIN 27.4 PG (27.0-31.0); MEAN CORPUSCULAR HGB CONC 32.3 g/dL (33.0-36.5); MEAN CORPUSCULAR VOLUME 84.8 FL (78-98); MEAN PLATELET VOLUME 6.8 FL (7.4-10.4); MONOCYTES # (AUTO) 0.5 X10'3 (0-0.9); MONOCYTES % (AUTO) 6.2 % (2-12); NEUTROPHILS # (AUTO) 5.7 X10'3 (1.8-7.7); NEUTROPHILS % (AUTO) 76.2 % (42-75); PLATELET COUNT 249 X10'3 (140-440); RED BLOOD COUNT 4.03 X10'6 (4.70-6.10); RED CELL DISTRIBUTION WIDTH 17.9 % (11.5-14.5); WHITE BLOOD COUNT 7.5 X10'3 (4.5-11.0)
[2024-02-23 15:36] LABS: ALANINE AMINOTRANSFERASE 12 U/L (12-78); ALBUMIN 3.5 G/DL (3.4-5.0); ALBUMIN/GLOBULIN RATIO 0.7 (1.1-1.5); ALKALINE PHOSPHATASE 74 IU/L (46-116); ANION GAP 22 (8-16); ASPARTATE AMINO TRANSFERASE 27 U/L (10-37); BILIRUBIN,TOTAL 0.5 MG/DL (0.1-1.0); BLOOD UREA NITROGEN 106 MG/DL (7-18); CALCIUM 9.9 MG/DL (8.5-10.1); CHLORIDE 100 MMOL/L (99-107); CREATININE 13.26 MG/DL (0.60-1.10); GLUCOSE 94 MG/DL (70-104); SODIUM 139 MMOL/L (135-145); TOTAL CARBON DIOXIDE 17.3 MMOL/L (24-32); TOTAL PROTEIN 8.7 G/DL (6.4-8.2); eCRCL 6 ML/MIN; eGFR 4 ML/MIN
[2024-02-23 15:39] LABS: PRO BRAIN NATRIURETIC PEPTIDE > 30000 PG/ML (0-125)
[2024-02-23 15:41] LABS: POTASSIUM 6.3 MMOL/L (3.5-5.1)
[2024-02-23] MEDS ORDERED: mag hydrox/Alum hydrox/simeth 30ml oral suspension PO PRN (15:50)
[2024-02-23] MEDS ORDERED: ondansetron/PF 4mg/2ml inj IV PRN (15:50)
[2024-02-23] MEDS ORDERED: acetaminophen 325mg tablet PO PRN (15:50)
[2024-02-23] MEDS ORDERED: magnesium sulf-water 4G/100mL 100 ML IV PRN (15:50)
[2024-02-23] MEDS ORDERED: magnesium Cl slow-release 64mg tablet PO PRN (15:50)
[2024-02-23] MEDS ORDERED: potassium Cl 40MEQ/1/2NS 520ml 520 ML IV PRN (15:50)
[2024-02-23] MEDS ORDERED: potassium Cl 20 mEq SR tablet PO PRN ×2 (15:50)
[2024-02-23] MEDS ORDERED: magnesium sulf-water 2g/50mL 50 ML IV PRN (15:50)
[2024-02-23] MEDS ORDERED: magnesium hydroxide 30ml (MOM) UD suspension PO PRN (15:50)
[2024-02-23 16:40] LABS: APTT 31 SECONDS (22-32); INR 1.1 INR; PROTHROMBIN TIME 11.2 SECONDS (9.0-12.0)
[2024-02-23 16:54] LABS: MAGNESIUM 2.3 MG/DL (1.5-2.4)
[2024-02-23 16:55] LABS: PRO BRAIN NATRIURETIC PEPTIDE > 30000 PG/ML (0-125)
[2024-02-23 17:15] LABS: PHOSPHORUS 9.3 MG/DL (2.3-4.5)
[2024-02-23] MEDS ORDERED: calcium gluconate inj. 2 GM in normal saline 100ml IV soln 100 ML IV PRN (17:40)
[2024-02-23] MEDS: CALCIUM GLUC 1gm/50ml NACL,iso 50 ML IV ONE ×2 (18:56→19:52)
[2024-02-23] MEDS: docusate sod 100mg capsule PO SCH (20:00)
[2024-02-23] MEDS: K and/or MAG REPLACEMENT MC SCH (20:00)
[2024-02-23 22:21] LABS: HEMOGLOBIN A1C 4.6 % (4.5-6.2)
[2024-02-23] MEDS: heparin 1,000 units/ml 10ml inj IV ONE (23:20)
[2024-02-23] MEDS ORDERED: DEXTROSE 15 GM of carb/4 tabs (each vial/BOTTLE has 4 tablets) PO PRN ×2 (23:20)
[2024-02-23] MEDS ORDERED: dextrose 50%-water 50ml dispensing syringe IV PRN ×2 (23:20)
[2024-02-23] MEDS ORDERED: glucagon, human recombinant 1mg kit SUBCUT PRN (23:20)
[2024-02-23] MEDS: heparin 1,000unit/ml 10ml vial 10 ML IV ONE (23:21)
[2024-02-23] MEDS: heparin 1,000 units/ml 10ml inj HE ONE ×2 (23:21→23:22)
[2024-02-23] MEDS ORDERED: OMEP40CA21 PO (23:57)
[2024-02-23] MEDS ORDERED: ATOR10TA70 PO (23:57)
[2024-02-23] MEDS ORDERED: LOSA100T58 PO (23:57)
[2024-02-23] MEDS ORDERED: FERR-106 PO (23:57)
[2024-02-23] MEDS ORDERED: ASPI-1397 PO (23:57)
[2024-02-24] VITALS (7 sets, daily range): BP systolic 110–137; BP diastolic 59–93; PULSE 64–110; RESP 14–18; TEMP 97.7–98.4; O2SAT 97–100
[2024-02-24] MEDS: ondansetron 4mg rapidly disintigrating tab PO SCH
[2024-02-24 04:51] LABS: BASOPHILS # (AUTO) 0.1 X10'3 (0-0.2); BASOPHILS % (AUTO) 1.3 % (0-1); EOSINOPHILS # (AUTO) 0.4 X10'3 (0-0.9); EOSINOPHILS % (AUTO) 5.9 % (0-6); HEMATOCRIT 35.2 % (42.0-52.0); HEMOGLOBIN 11.3 g/dl (14.0-17.9); LYMPHOCYTES # (AUTO) 0.7 X10'3 (1.1-4.8); LYMPHOCYTES % (AUTO) 11.2 % (21-51); MEAN CORPUSCULAR HEMOGLOBIN 27.3 PG (27.0-31.0); MEAN CORPUSCULAR HGB CONC 32.2 g/dL (33.0-36.5); MEAN CORPUSCULAR VOLUME 84.8 FL (78-98); MONOCYTES # (AUTO) 0.7 X10'3 (0-0.9); MONOCYTES % (AUTO) 10.3 % (2-12); NEUTROPHILS # (AUTO) 4.5 X10'3 (1.8-7.7); NEUTROPHILS % (AUTO) 71.3 % (42-75); PLATELET COUNT 267 X10'3 (140-440); RED BLOOD COUNT 4.15 X10'6 (4.70-6.10); RED CELL DISTRIBUTION WIDTH 17.2 % (11.5-14.5); WHITE BLOOD COUNT 6.3 X10'3 (4.5-11.0)
[2024-02-24 05:04] LABS: APTT 30 SECONDS (22-32); INR 1.1 INR; PROTHROMBIN TIME 11.1 SECONDS (9.0-12.0)
[2024-02-24 05:07] LABS: ALANINE AMINOTRANSFERASE 10 U/L (12-78); ALBUMIN/GLOBULIN RATIO 0.6 (1.1-1.5); ALKALINE PHOSPHATASE 65 IU/L (46-116); ANION GAP 13 (8-16); ASPARTATE AMINO TRANSFERASE 12 U/L (10-37); BILIRUBIN,TOTAL 0.7 MG/DL (0.1-1.0); BLOOD UREA NITROGEN 53 MG/DL (7-18); BUN/CREATININE RATIO 6.9 (10.0-20.0); CALCIUM 9.6 MG/DL (8.5-10.1); CHLORIDE 102 MMOL/L (99-107); CREATININE 7.65 MG/DL (0.60-1.10); GLUCOSE 89 MG/DL (70-104); PHOSPHORUS 6.7 MG/DL (2.3-4.5); POTASSIUM 4.1 MMOL/L (3.5-5.1); SODIUM 138 MMOL/L (135-145); TOTAL CARBON DIOXIDE 22.6 MMOL/L (24-32); TOTAL PROTEIN 7.7 G/DL (6.4-8.2); eCRCL 10 ML/MIN; eGFR 8 ML/MIN
[2024-02-24 06:41] LABS: C DIFF ANTIGEN NEGATIVE (NEGATIVE); C DIFF SPECIMEN=DIARRHEA? ACCEPTABLE; C DIFFICILE TOXINS A&B NEGATIVE (Neg)
[2024-02-24] MEDS ORDERED: lisinopril 20mg tablet PO SCH (08:00)
[2024-02-24] MEDS ORDERED: pantoprazole 40mg Tablet.DR PO SCH (08:00)
[2024-02-24] MEDS: amLODIPine 2.5mg tablet PO SCH (09:42)
[2024-02-24] MEDS: carVEDilol 12.5mg tablet PO SCH (09:42)
[2024-02-24] MEDS: calcium acetate 667mg (PhosLO) capsule PO SCH (13:55)
[2024-02-25] VITALS (9 sets, daily range): BP systolic 98–130; BP diastolic 60–74; PULSE 65–100; RESP 16–18; TEMP 97.5–98; O2SAT 99–100
[2024-02-25 05:12] LABS: BASOPHILS % (AUTO) 0.8 % (0-1); EOSINOPHILS # (AUTO) 0.5 X10'3 (0-0.9); EOSINOPHILS % (AUTO) 9.9 % (0-6); HEMATOCRIT 30.1 % (42.0-52.0); HEMOGLOBIN 9.7 g/dl (14.0-17.9); LYMPHOCYTES # (AUTO) 1.1 X10'3 (1.1-4.8); LYMPHOCYTES % (AUTO) 21.3 % (21-51); MEAN CORPUSCULAR HEMOGLOBIN 27.4 PG (27.0-31.0); MEAN CORPUSCULAR HGB CONC 32.4 g/dL (33.0-36.5); MEAN CORPUSCULAR VOLUME 84.5 FL (78-98); MEAN PLATELET VOLUME 7.1 FL (7.4-10.4); MONOCYTES # (AUTO) 0.8 X10'3 (0-0.9); NEUTROPHILS # (AUTO) 2.7 X10'3 (1.8-7.7); PLATELET COUNT 199 X10'3 (140-440); RED BLOOD COUNT 3.56 X10'6 (4.70-6.10); RED CELL DISTRIBUTION WIDTH 17.3 % (11.5-14.5)
[2024-02-25 05:40] LABS: ALANINE AMINOTRANSFERASE 11 U/L (12-78); ALBUMIN 2.8 G/DL (3.4-5.0); ALBUMIN/GLOBULIN RATIO 0.7 (1.1-1.5); ALKALINE PHOSPHATASE 53 IU/L (46-116); ANION GAP 16 (8-16); ASPARTATE AMINO TRANSFERASE 10 U/L (10-37); BILIRUBIN,TOTAL 0.4 MG/DL (0.1-1.0); BLOOD UREA NITROGEN 96 MG/DL (7-18); BUN/CREATININE RATIO 9.2 (10.0-20.0); CALCIUM 9.2 MG/DL (8.5-10.1); CHLORIDE 99 MMOL/L (99-107); CREATININE 10.47 MG/DL (0.60-1.10); GLUCOSE 87 MG/DL (70-104); MAGNESIUM 2.6 MG/DL (1.5-2.4); POTASSIUM 4.9 MMOL/L (3.5-5.1); SODIUM 135 MMOL/L (135-145); TOTAL CARBON DIOXIDE 20.3 MMOL/L (24-32); eCRCL 8 ML/MIN; eGFR 6 ML/MIN
[2024-02-25 05:41] LABS: APTT 33 SECONDS (22-32); PROTHROMBIN TIME 10.7 SECONDS (9.0-12.0)
[2024-02-25] MEDS: EPOETIN ALFA-EPBX 20,000 UNIT/ML 1 ML MDV IV ONE (06:45)
[2024-02-25] MEDS: heparin 1,000 units/ml 10ml inj IV ONE (06:49)
[2024-02-25] MEDS: heparin 1,000unit/ml 10ml vial 10 ML IV ONE (06:49)
[2024-02-25] MEDS: heparin 1,000 units/ml 10ml inj HE ONE ×2 (06:49→06:50)
[2024-02-25] MEDS ORDERED: albumin (human) 25% 100ml IV 100 ML IV PRN (08:00)
[2024-02-25] MEDS: ferrous sulfate 325mg tablet PO SCH (08:00)
[2024-02-25] MEDS: losartan 50mg tablet PO SCH (09:42)
[2024-02-25] MEDS: aspirin 81mg, enteric-coated 1 TAB TABLET.DR PO SCH (09:42)
[2024-02-25] MEDS: atorvastatin 10mg tablet PO SCH (09:43)
[2024-02-25 12:13] LABS: ALANINE AMINOTRANSFERASE 11 U/L (12-78); ALBUMIN 2.8 G/DL (3.4-5.0); ALBUMIN/GLOBULIN RATIO 0.6 (1.1-1.5); ALKALINE PHOSPHATASE 57 IU/L (46-116); ANION GAP 9 (8-16); ASPARTATE AMINO TRANSFERASE 10 U/L (10-37); BILIRUBIN,TOTAL 0.5 MG/DL (0.1-1.0); BLOOD UREA NITROGEN 42 MG/DL (7-18); CALCIUM 8.7 MG/DL (8.5-10.1); CHLORIDE 100 MMOL/L (99-107); CREATININE 6.03 MG/DL (0.60-1.10); GLUCOSE 86 MG/DL (70-104); SODIUM 136 MMOL/L (135-145); TOTAL PROTEIN 7.4 G/DL (6.4-8.2); eCRCL 13 ML/MIN; eGFR 11 ML/MIN
[2024-02-25] MEDS ORDERED: SEVE400T PO (12:22)
[2024-02-26 06:02] LABS: HBSAG SCREEN Negative (Negative)
== END 2024-02-25 15:15 | disposition home or self-care (01) | DRG 425 ==
LOC: ER 13:08 → ED HOLD 15:53 → EDBEDREQ 17:09 → ORTHO 4S 20:55
PROVIDERS: ADMIT Family Medicine; ATTEND Family Medicine
PROC: 5A1D70Z Performance of Urinary Filtration, Intermittent, Less than 6 Hours Per Day (ICD-10-PCS; principal; 2024-02-23)
PROC: 5A1D70Z Performance of Urinary Filtration, Intermittent, Less than 6 Hours Per Day (ICD-10-PCS; 2024-02-25)
DX: E87.5 Hyperkalemia (principal); N17.9 Acute kidney failure, unspecified; I12.0 Hypertensive chronic kidney disease with stage 5 chronic kidney disease or end stage renal disease; D63.8 Anemia in other chronic diseases classified elsewhere; N18.5 Chronic kidney disease, stage 5; Z20.822 Contact with and (suspected) exposure to COVID-19; E87.20 Acidosis, unspecified; I71.9 Aortic aneurysm of unspecified site, without rupture; Z79.899 Other long term (current) drug therapy; Z99.2 Dependence on renal dialysis
CPT/HCPCS: 36415; 71045; 71046; 80053; 82948; 83036; 83735; 83880; 84100; 85025; 85610; 85730; 87081; 87324; 87340; 87449; 87502; 87503; 87811; 93005; 99285; A4615; E1594; G0257; G0378; J0610; J1644; J7030; Q4081

== ENCOUNTER 2025-01-20 09:30 | Outpatient (CLI) | payer MEDICAID ==
[2024-12-30 14:56] LABS: CREATININE 7.40 MG/DL (0.60-1.10); TOTAL CARBON DIOXIDE 32.4 MMOL/L (24-32); eGFR 9 ML/MIN
[~2025-01-20 09:30] MED LIST changes: +ASPI-1397 PO; +ATOR10TA70 PO; +FERR-106 PO; -FOSI40TA71 PO; +LOSA100T58 PO; +OMEP40CA21 PO; -ONDA-243 PO; -PANT-47 PO; +SEVE400T PO
--- NOTE | 2025-01-21 05:15 | RADIOLOGY REPORT ---
Examination: CT CTA AORTA DISECTION CLINICAL HISTORY: DISSECTION OF UNSPECIFIED SITE OF AORTA Comparison: None Technique: Using helical technique, CT data from the chest through the pelvis was obtained during rap id IV contrast infusion. The examination was timed to the arterial system to generate a CT angiograph ic study. 3D images were generated at an independent work station. Dose reduction techniques included automated exposure control. Radiation Dose Information: CT Dose: CTDI volume is 5.6 mGy. Dose-length product is 1436 mGy*cm Findings: Vascular: Postsurgical changes of stent graft at the aortic arch distal to the origins of the brachiocephalic, left common carotid and left subclavian arteries. Stent is patent. There is persistent filling of the false lumen suggesting endoleak. 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 Superior mesenteric artery, celiac artery and inferior mesenteric artery are patent. Renal arteries a re suboptimally visualized. Chest: Lungs/Pleura: Low lung volumes. Dependent atelectasis. Trace left pleural effusion. Axilla/Soft Tissue: Left central venous dialysis catheter in-situ. Mediastinum:Visualized thyroid is normal. No pathologic mediastinal or hilar adenopathy. Esophagus i s normal. Trachea and proximal bronchi are normal. Heart: Cardiomegaly. Coronary artery calcifications. Vascular calcifications of the aorta. Abdomen/Pelvis: Liver: The liver is normal in size and morphology,. No focal hepatic lesion. The portal veins are pat ent. Biliary System: Gallbladder: Normal Bile Ducts: No intrahepatic or extrahepatic biliary ductal dilation. Spleen: No splenomegaly or focal splenic lesion. Pancreas: No masses or ductal dilation. Adrenals: Normal. Urinary System: Kidneys and Ureters: Atrophic kidneys. Bladder: Normal. GI System: Moderate colonic stool. Lymph nodes: No lymphadenopathy. Peritoneal cavity and surface: No free fluid. No pneumoperitoneum. Soft Tissues: Mild diffuse body wall edema. Reproductive Organs: Normal. Bones: No acute fracture or aggressive osseous lesion. Median sternotomy. Sclerotic appearance to th e osseous structures possibly related to renal osteodystrophy. Impression: Vascular: Postsurgical changes of stent graft at the aortic arch distal to the origins of the brachiocephalic, left common carotid and left subclavian arteries. Stent is patent. There is persistent filling of the false lumen suggesting persistent endoleak. 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 Superior mesenteric artery, celiac artery and inferior mesenteric artery are patent. Renal arteries a re suboptimally visualized. Chest: 1. No acute intrathoracic process. Abdomen/Pelvis: 1. No acute abdominal pelvic process.
== END 2025-01-20 23:59 | disposition home or self-care (01) ==
LOC: RAD 09:30
PROVIDERS: ATTEND Nurse Practitioner
DX: I72.0 Aneurysm of carotid artery (principal); I71.00 Dissection of unspecified site of aorta; K44.9 Diaphragmatic hernia without obstruction or gangrene; J98.11 Atelectasis; R60.0 Localized edema
CPT/HCPCS: 36415; 71275; 74174; 80048; Q9967

== ENCOUNTER 2025-04-27 18:17 | Emergency (ER) | payer MEDICAID ==
[~2025-04-27] VITALS: Ht 167.6 cm; Wt 47.7 kg
--- NOTE | 2025-04-27 19:09 | Physician Documentation ---
History of Present Illness ~ Chief Complaint: Abdominal Pain Stated Complaint: ABD PAIN Time Seen by MD: 21:01 Primary Medical Doctor: [facility] HPI This is a 29-year-old male who presents with two days of lower abdominal pain, patient reports dark diarrhea for the past two days with possible blood in stool. Denies black stool Medication Reconciliation Allergies: Coded Allergies: No Known Allergies (Unverified , 04/27/25) Scheduled Amlodipine* (Norvasc*), 10 MG PO DAILY, (Reported) Aspirin (Aspirin EC), 1 TAB PO DAILY, (Reported) Atorvastatin Calcium (Atorvastatin Calcium), 1 TAB PO DAILY, (Reported) Carvedilol (Carvedilol), 1 TAB PO Q12H, (Reported) Ferrous Sulfate (Ferrous Sulfate), 1 TAB PO DAILY, (Reported) Losartan Potassium (Losartan Potassium), 1 TAB PO DAILY, (Reported) Omeprazole (Prilosec), 1 CAP PO DAILY, (Reported) Sevelamer HCl (Sevelamer HCl), 1 TAB PO Q8H Past Medical History Past Medical History: Chronic Kidney Disease, Dialysis Patient History: FH: stroke MOTHER Lives In: Home Review of Systems ROS As stated above in the HPI, otherwise all systems are reviewed and negative. Physical Exam Vital Signs: Temperature: 97.8, Source: Temporal, Heart Rate: 90, Respiratory Rate: 16, BP: 157/91, Pulse Oximetry: 98, Weight: 47.700 Oxygen Flow Rate: 3.0 Physical Exam General: Patient is awake, alert, oriented x4 in no acute distress. On nasal cannula Head: Normocephalic and atraumatic. Eyes: Conjunctival normal. EOMI. PERRL. ENT: Mucous membranes moist. Neck: Supple, trachea is midline. Chest: Clear to auscultation bilaterally without rales, rhonchi, or wheezes. There is no accessory muscle use or retractions. Cardiac: RRR without murmurs, gallops, or rubs. Abd: Soft, nondistended, positive tenderness to palpation without peritonitis Progress Results/Orders Results/Orders Orders - PIERRE ROSE MD Urinalysis, Cult If Indicated (04/27/25 18:23) Ct Abdomen Pelvis (04/27/25 21:00) Completed Orders - PIERRE ROSE MD Cbc/Diff (04/27/25 18:23) BMP (04/27/25 18:23) Lipase (04/27/25 18:23) CMP (04/27/25 18:23) Ct Abdomen Pelvis (04/27/25 21:00) Vital Signs 04/27/25 04/27/25 04/27/25 18:18 20:40 20:40 Temp 97.8 97.8 Pulse 90 83 Resp 16 18 16 B/P (MAP) 157/91 140/96 (111) Pulse Ox 98 100 O2 Flow Rate 3.0 4.0 Laboratory Tests Test 04/27/25 19:03 White Blood Count 5.1 Red Blood Count 5.22 Hemoglobin 15.2 Hematocrit 44.7 Mean Corpuscular Volume 85.7 Mean Corpuscular Hemoglobin 29.2 Mean Corpuscular Hemoglobin Concent 34.0 Red Cell Distribution Width 15.4 H Platelet Count 141 Mean Platelet Volume 6.6 L Neutrophils (%) (Auto) 63.6 Lymphocytes (%) (Auto) 13.8 L Monocytes (%) (Auto) 15.7 H Eosinophils (%) (Auto) 6.1 H Basophils (%) (Auto) 0.8 Neutrophils # (Auto) 3.3 Lymphocytes # (Auto) 0.7 L Monocytes # (Auto) 0.8 Eosinophils # (Auto) 0.3 Basophils # (Auto) 0.0 CBC Comment Sodium Level 139 Potassium Level 3.5 Chloride Level 98 L Carbon Dioxide Level 31.5 Anion Gap 10 Blood Urea Nitrogen 47 H Creatinine 6.73 H Estimated GFR/1.73 m2 10 BUN/Creatinine Ratio 7.0 L Glucose Level 94 Calcium Level 8.6 Total Bilirubin 0.5 Aspartate Amino Transf (AST/SGOT) 18 Alanine Aminotransferase (ALT/SGPT) 8 L Alkaline Phosphatase 69 Total Protein 6.4 Albumin 3.0 L Globulin 3.4 Albumin/Globulin Ratio 0.9 L Lipase 44 Chemistry Comments EKG/XRAY/CT/US/VASC/MRI CT : Impression Exam: CT ABDOMEN PELVIS EXAM: CT CT ABDOMEN PELVIS HISTORY: abd pain TECHNIQUE: Volumetric multidetector CT images of the abdomen and pelvis were obtained after the administration of intravenous contrast. All CT scans at this facility use dose modulation, iterative reconstruction, and/or weight based dosing when appropriate to reduce radiation dose to as low as reasonably achievable. COMPARISON: None FINDINGS: [LOWER CHEST]: small left-sided pleural effusion. Atelectasis and/or ground- glass in bilateral bases. Mild cardiomegaly. Trace pericardial fluid. [LIVER]: Normal hepatic size without suspicious focal lesion. [GALLBLADDER AND BILIARY TREE]: Trace possible layering biliary sludge. [SPLEEN]: Unremarkable. [PANCREAS]: Unremarkable. [ADRENAL GLANDS]: Unremarkable [KIDNEYS]: No hydronephrosis. No nephroureterolithiasis. Bilateral kidney thinning. 1 mm stone right inferior kidney. [BLADDER]: Bladder is decompressed [REPRODUCTIVE ORGANS]: Unremarkable. [BOWEL/MESENTERY]: Stomach is normal. No CT evidence of bowel obstruction. [ASCITES]: Trace pelvic ascites. [LYMPHADENOPATHY]: No pathologically enlarged lymph nodes by CT size criteria [VASCULATURE]: Descending thoracic aortic aneurysm measuring up to 4 cm. Of the aortic hiatus measures 3.8 cm. Fusiform ectasia measuring up to 2.8 cm of the infrarenal abdominal aorta. [ABDOMINAL WALL]: Unremarkable. [MUSCULOSKELETAL]: No acute fracture or aggressive focal osseous lesion. Sclerosis of the osseous structures which may be seen in the setting of renal osteodystrophy versus underlying other metabolic derangement. IMPRESSION: 1. No CT evidence of an acute abdominal/pelvic process. 2. Small left-sided pleural effusion. Trace pericardial effusion with mild cardiomegaly. Correlate for pericarditis. 3. Small left-sided pleural effusion. Trace pelvic ascites. 4. Trace possible layering biliary sludge. 5. Nonobstructive right inferior kidney stone. 6. Sclerosis of the osseous structures which may be seen in the setting of renal osteodystrophy given bilateral kidney atrophy. Medical Decision Making Additional information obtaine: old records Findings Patient presents to the emergency room with red blood per rectum as per HPI. Differentials include but are not limited to brisk upper GI bleed, lower GI bleed, diverticulitis cholecystitis pancreatitis therefore labs ordered. Labs reassuring for no anemia. Patient is end-stage renal disease on dialysis and I believe this is with the cause of the findings are on patient's CT scan of his lungs and heart. He has no complaints of shortness of breath or chest pain and he had not feel this requires emergent investigation. He is here for blood per rectum with some abdominal pain. Possible entire invasive diarrhea however no elevation of white blood cell count. No black stools reported he had not believe he is suffering from upper GI bleed. Given bloody diarrhea and patient was multiple comorbid conditions we will treat with antibiotic. Diff Dx GI Bleed:Consideration: Include: AE fistula, Angiodysplasia, Bleeding diathesis, Blood loss anemia, Carcinoma, Diverticulosis, Diverticulitis, Esophageal varicies, Esophagitis, Gastritis, Gastroenteritis, Inflammatory BD, Luz Elena-Galvan syndrome, Meckel's diverticulum, PUD, Other Diff Dx Pain:Considerations: Include: AAA, Angina/ND, Aortic dissection, Appendicitis, Bowel obstruction, Cholangitis, Cholecystitis, Cholelithasis, Constipation, Diverticular disease, Esophageal rupture, Esophagitis, Gastritis, Gastroenteritis, GI hemorrhage, Hepatitis, Hernia, Inflammatory BD, Ischemic bowel, Mass, Pancreatitis, Porphyria, PUD, Testicular torsion, Trauma, intraabdominal, Urinary obstruction, Urinary tract infection, Urolithiasis, Other Diff Dx N/V/D:Considerations: Include: Appendicitis, Bowel obstruction, Dehydration, DKA, Diarrhea - bacterial, Diarrhea - parasitic, Diarrhea - viral, Diverticulitis, Diverticulosis, Drug toxicity, Electrolyte imbalance, Food poisoning, Gastroenteritis, GE reflux, GI bleed, Hepatitis, Hernia, Hypovolemia, Hypotension, Inflammatory BD, Impaction, Malnutrition, Pancreatitis, PUD, Renal failure, Urinary obstruction, UTI, Urolithiasis, Other Diff Dx Rectal:Considerations: Include: Fissure, Fistula, Foreign body, Impaction, Perirectal abscess, Prostatitis, Rectal prolapse, Subcutaneous abscess, Thrombosed hemorrhoid, Ulcer, UTI, Other Departure Disposition: 01 HOME / SELF CARE / HOMELESS Impression: Primary Impression: Abdominal pain Additional Impression: Blood per rectum Condition: Stable Discharge Instructions: Bloody Diarrhea Referrals: NO PRIMARY CARE PROVIDER (PCP) Prescriptions Azithromycin (Zithromax) 250 Mg Tablet 250 MG PO DAILY, #6 TAB Take 2 tabs on day one, one tab daily thereafter Prov: PIERRE ROSE MD 04/27/25 Signature Scribe Signature: No scribe Attestation: The note accurately reflects work and decisions made by me.Pierre Rose MD 04/27/25 22:09 UGO RUIZ Apr 27, 2025 19:09 PIERRE ROSE MD Apr 27, 2025 21:08
[2025-04-27 19:37] LABS: CREATININE 6.73 MG/DL (0.60-1.10); TOTAL CARBON DIOXIDE 31.5 MMOL/L (24-32); eCRCL 11 ML/MIN; eGFR 10 ML/MIN
[2025-04-27 21:06] LABS: MEAN PLATELET VOLUME 6.6 FL (7.4-10.4); RED CELL DISTRIBUTION WIDTH 15.4 % (11.5-14.5)
--- NOTE | 2025-04-27 21:54 | RADIOLOGY REPORT ---
EXAM: CT CT ABDOMEN PELVIS HISTORY: abd pain TECHNIQUE: Volumetric multidetector CT images of the abdomen and pelvis were obtained after the administration of intravenous contrast. All CT scans at this facility use dose modulation, iterative reconstruction, and/or weight based dosing when appropriate to reduce radiation dose to as low as reasonably achievable. COMPARISON: None FINDINGS: [LOWER CHEST]: small left-sided pleural effusion. Atelectasis and/or ground- glass in bilateral bases. Mild cardiomegaly. Trace pericardial fluid. [LIVER]: Normal hepatic size without suspicious focal lesion. [GALLBLADDER AND BILIARY TREE]: Trace possible layering biliary sludge. [SPLEEN]: Unremarkable. [PANCREAS]: Unremarkable. [ADRENAL GLANDS]: Unremarkable [KIDNEYS]: No hydronephrosis. No nephroureterolithiasis. Bilateral kidney thinning. 1 mm stone right inferior kidney. [BLADDER]: Bladder is decompressed [REPRODUCTIVE ORGANS]: Unremarkable. [BOWEL/MESENTERY]: Stomach is normal. No CT evidence of bowel obstruction. [ASCITES]: Trace pelvic ascites. [LYMPHADENOPATHY]: No pathologically enlarged lymph nodes by CT size criteria [VASCULATURE]: Descending thoracic aortic aneurysm measuring up to 4 cm. Of the aortic hiatus measures 3.8 cm. Fusiform ectasia measuring up to 2.8 cm of the infrarenal abdominal aorta. [ABDOMINAL WALL]: Unremarkable. [MUSCULOSKELETAL]: No acute fracture or aggressive focal osseous lesion. Sclerosis of the osseous structures which may be seen in the setting of renal osteodystrophy versus underlying other metabolic derangement. IMPRESSION: 1. No CT evidence of an acute abdominal/pelvic process. 2. Small left-sided pleural effusion. Trace pericardial effusion with mild cardiomegaly. Correlate for pericarditis. 3. Small left-sided pleural effusion. Trace pelvic ascites. 4. Trace possible layering biliary sludge. 5. Nonobstructive right inferior kidney stone. 6. Sclerosis of the osseous structures which may be seen in the setting of renal osteodystrophy given bilateral kidney atrophy.
[2025-04-27] MEDS ORDERED: AZIT-164 PO (22:12)
[2025-04-27 22:48] VITALS: BP 150/97; PULSE 84; RESP 18; TEMP 97.8; O2SAT 100
[2025-04-27 23:06] LABS: BANDS% (MANUAL) 1.0 % (0-10); EOSINOPHILS % (MANUAL) 8.0 % (0-6); LYMPHOCYTES % (MANUAL) 13.0 % (21-51); MONOCYTES % (MANUAL) 14.0 % (2-12); NEUTROPHILS % (MANUAL) 64.0 % (42-75); PLATELET ESTIMATE NORMAL
== END 2025-04-27 22:51 | disposition home or self-care (01) ==
LOC: ER 18:17
DX: K62.5 Hemorrhage of anus and rectum (principal); N18.6 End stage renal disease; Z79.82 Long term (current) use of aspirin; Z79.899 Other long term (current) drug therapy; Z99.2 Dependence on renal dialysis
CPT/HCPCS: 36415; 74176; 80053; 83690; 85007; 85025; 99284; 99285; A4615